=== PATIENT | male | born 1990 | race African-American/Black ===

== ENCOUNTER 2017-10-04 20:27 | Emergency (ER) | payer OTHER ==
[~2017-10-04] VITALS: Ht 185.4 cm; Wt 81.6 kg
--- NOTE | 2017-10-04 21:00 | NUR ---
PT C/O CP AND THROBBING PAIN IN HIS PENIS. PT APPEARS TO BE LAUGHING AND CALM. PT STATED THAT THE PAIN IN HIS PENIS STARTED YESTERDAY. PT AMBULATED TO BED #13. THEN PT AMBULATED TO THE BATHROOM TO GIVE A URINE SAMPLE.
--- NOTE | 2017-10-04 22:48 | NUR ---
CALLING LAB RE: URINE NOT SHOWING IN LAB VALUES.
[2017-10-04 23:19] LABS: APPEARANCE,URINE SL CLOUDY (CLEAR); BILIRUBIN,URINE NEGATIVE (NEGATIVE); COLOR,URINE YELLOW (YELLOW); KETONES,URINE NEGATIVE (NEGATIVE); LEUKOCYTE ESTERASE ,URINE NEGATIVE (NEGATIVE); NITRITE, URINE NEGATIVE (NEGATIVE); PH,URINE 6.5 (5.0-8.0); PROTEIN,URINE NEGATIVE (NEGATIVE); UGLUCOSE NEGATIVE (NEGATIVE); UROBILINOGEN,URINE 0.2 EU/dL (0.2)
[2017-10-04 23:20] LABS: BACTERIA,URINE None seen /HPF (None Seen); BLOOD, URINE 2+ Ery/uL (NEGATIVE); SQUAMOUS EPITHELIAL CELL,UR Few /HPF (None Seen)
[2017-10-04] MEDS ORDERED: CEFTRIAXONE 1 G VIAL ONE (23:28)
[2017-10-04] MEDS ORDERED: LIDOCAINE /MPF 1% VIAL 5 ML VIAL ONE (23:28)
[2017-10-04] MEDS ORDERED: AZITHROMYCIN 250 MG TABLET ONE (23:28)
--- NOTE | 2017-10-04 23:59 | NUR ---
Patient discharged to home in stable condition. Written and verbal after care instructions given. Patient verbalizes understanding of instruction AND RX. PT AMBULATED OUT WITH A STEADY GAIT.
[2017-10-05] MEDS ORDERED: CEFTRIAXONE 500 MG VIAL IM ONE
[2017-10-05] MEDS ORDERED: INSU100V7 SQ (00:07)
[2017-10-05] MEDS ORDERED: SITA50TA PO (00:07)
[2017-10-05] MEDS ORDERED: LABE200T5 PO (00:07)
[2017-10-05] MEDS ORDERED: *INS HUMA SQ (00:07)
[2017-10-05] MEDS ORDERED: HYDR100T27 PO (00:07)
[2017-10-05 00:16] VITALS: BP 116/74
== END 2017-10-04 23:40 | disposition home or self-care (01) ==
LOC: ER 20:33
DX: R30.0 Dysuria (principal); R07.89 Other chest pain; Z88.1 Allergy status to other antibiotic agents
CPT/HCPCS: 81000-TC; 87086-TC; 87491; 87591; A4606; J0696; J3490; Z7610